=== PATIENT | male | born 1985 | race Two or more races ===

== ENCOUNTER 2020-09-05 16:38 | Inpatient (IN) | payer OTHER ==
[~2020-09-05] VITALS: Ht 182.9 cm; Wt 117.5 kg
[2020-09-05] MEDS ORDERED: PANTOPRAZOLE 40 MG/10 ML VIAL INJ IV STA (17:29)
[2020-09-05] MEDS ORDERED: SODIUM CHLORIDE 0.9% 1,000 ML IVB ONE (17:30)
[2020-09-05] MEDS ORDERED: MORPHINE SULFATE 4 MG/ML SYR/VIAL IV ONE (18:15)
[2020-09-05] MEDS ORDERED: ONDANSETRON HCL 4 MG/2 ML VIAL IV ONE (18:15)
[2020-09-05 18:21] LABS: Basophils # (auto) 0 10 ^3/uL (0-0.2); Basophils % (auto) 0.5 % (0.0-2.0); Eosinophils # (auto) 0.1 10 ^3/uL (0-0.8); Eosinophils % (auto) 0.6 % (0.0-7.0); Hematocrit 50.4 % (41.0-53.0); Hemoglobin 16.8 g/dL (13.5-17.5); Lymphocytes # (auto) 0.9 10 ^3/uL (0.4-5.4); Lymphocytes % (auto) 9.7 % (10.0-50.0); Mean Corpuscular Hgb Conc. 33.3 g/dL (32.0-36.0); Monocytes # (auto) 0.8 10 ^3/uL (0-1.3); Monocytes % (auto) 9.5 % (0.0-12.0); Neutrophils % (auto) 79.7 % (37.0-80.0); Nucleated Red Blood Cells % 0.2 %; Platelet Count (auto) 261 10^3/uL (140-450); Red Blood Cells 5.99 10^6/uL (4.5-5.90); Red Cell Distribution Width 13.4 % (11.8-14.3); White Blood Cell 8.8 10^3/uL (4.4-10.8)
[2020-09-05 18:43] LABS: Albumin 4.4 g/dL (3.4-5.0); Calcium 8.7 mg/dL (8.5-10.1); Potassium 3.7 mmol/L (3.5-5.1)
[2020-09-05] MEDS ORDERED: LORazepam 2MG/ML-1ML VIAL IV ONE (18:45)
[2020-09-05] MEDS ORDERED: ONDANSETRON HCL 4 MG/2 ML VIAL IV PRN (18:45)
[2020-09-05] MEDS ORDERED: MORPHINE SULF INJ 2 MG/ML SYRINGE 1ML IV PRN (18:45)
[2020-09-05] MEDS: D5W/SOD CHLO 0.9% 1,000 ML IV SCH (18:45)
[2020-09-05 18:46] LABS: Bilirubin, Total 0.7 mg/dL (0.2-1.0)
[2020-09-05 22:00] VITALS: BP 127/76
[2020-09-05] MEDS: METOCLOPRAMIDE HCL 5MG/ml INJ 2ml VIAL IV SCH (22:00)
--- NOTE | 2020-09-05 22:16 | NUR ---
Patient arrived to room 296B Patient A&Ox4, respirations even and non-labored with no s/s of distress at this time. VS: T 98.7, IN 91, RR 21, 95%, 127/76, 4/10 pain. Discussed POC with patient who verbalized understanding. Patient has a 20g to the LAC. Patient connected to LIS per Physician orders, draining 400 mL of greenish brown fluid. Patient stated that he felt a lot better after the LIS began. D5/.9NS running at 125 mL/hr. Safety precautions in place, bed in lowest locked position with 2 side rails up, call light within reach. Will continue to monitor Q1hr and PRN.
[2020-09-05 23:39] VITALS: BP 127/76
[2020-09-06] MEDS: D5W/SOD CHLO 0.9% 1,000 ML IV SCH ×3 (02:45→18:20)
[2020-09-06 05:00] VITALS: BP 132/70
[2020-09-06] MEDS: METOCLOPRAMIDE HCL 5MG/ml INJ 2ml VIAL IV SCH ×2 (05:13→13:53)
--- NOTE | 2020-09-06 05:48 | NUR ---
Emptied suction canister Removed 500 ml of dark green fluid.
--- NOTE | 2020-09-06 07:45 | NUR ---
Closing shift note Patient resting without s/s of distress at this time. Endorsed care to day shift RN.
[2020-09-06 08:04] LABS: Basophils # (auto) 0 10 ^3/uL (0-0.2); Basophils % (auto) 0.5 % (0.0-2.0); Eosinophils # (auto) 0 10 ^3/uL (0-0.8); Eosinophils % (auto) 0.4 % (0.0-7.0); Hemoglobin 15.6 g/dL (13.5-17.5); Lymphocytes # (auto) 1.4 10 ^3/uL (0.4-5.4); Lymphocytes % (auto) 18.3 % (10.0-50.0); Mean Corpuscular Hemoglobin 28.2 pg (28.0-32.0); Mean Corpuscular Hgb Conc. 33.1 g/dL (32.0-36.0); Mean Corpuscular Volume 85.1 fL (80.0-100.0); Monocytes # (auto) 1.1 10 ^3/uL (0-1.3); Monocytes % (auto) 14.3 % (0.0-12.0); Neutrophils # (auto) 5.1 10 ^3/uL (1.6-8.6); Neutrophils % (auto) 66.5 % (37.0-80.0); Platelet Count (auto) 246 10^3/uL (140-450); Red Blood Cells 5.52 10^6/uL (4.5-5.90); Red Cell Distribution Width 13.7 % (11.8-14.3); White Blood Cell 7.7 10^3/uL (4.4-10.8)
--- NOTE | 2020-09-06 08:15 | NUR ---
Opening Shift Note Assumed care of patient, awake and alert bed is locked and in lowest position bed rails up x2 , call light is within reach . No S/S of distress/SOB or pain. Instructed on POC and to call for assistance PRN, will continue to monitor for changes Q1hr and PRN.
[2020-09-06] MEDS ORDERED: GASTROGRAFIN 120 ML SOL ONE (08:17)
[2020-09-06 08:24] LABS: Albumin 3.8 g/dL (3.4-5.0); Calcium 8.2 mg/dL (8.5-10.1); Potassium 3.7 mmol/L (3.5-5.1)
[2020-09-06 08:28] LABS: BUN/Creatinine Ratio 20.5; Bilirubin, Total 0.7 mg/dL (0.2-1.0); INR 1.03 (0.9-1.15); Partial Thromboplastin Time 27.6 sec (23.0-31.2); Total Protein 7.3 g/dL (6.4-8.2)
[2020-09-06 09:00] VITALS: BP 129/74
[2020-09-06] MEDS: PANTOPRAZOLE 40 MG/10 ML VIAL INJ IV SCH (10:52)
[2020-09-06 13:00] VITALS: BP_SYST 128; BP_SYST 150; BP_DIAS 73; BP_DIAS 80
[2020-09-06] MEDS ORDERED: POTASSIUM CHLORIDE 20 MEQ, LIDOCAINE 1% (LOCAL ANESTH.) 2 ML in SODIUM CHL 0.9% 100 ML IV ONE (14:00)
[2020-09-06] MEDS ORDERED: POTASSIUM EFFERVESENT TAB 25 MEQ PO ONE (14:45)
[2020-09-06 17:00] VITALS: BP 136/77
--- NOTE | 2020-09-06 17:38 | NUR ---
NGT removal NGT removed per MD/[employer]INTENANCE order following explanation and instruction to patient. Patient verbalized understanding prior to removal. Patient tolerated well.
--- NOTE | 2020-09-06 19:20 | NUR ---
OPENING SHIFT NOTE Assumed care of patient who is alert and oriented currently on RA with no S/S of distress or SOB noted at this time. Patient is ambulatory without assistance. Patient denies any pain at this time. POC discussed with patient in detail, all questions answered, patient verbalized understanding. Bed is locked, in lowest position. side rails up x2. Patient is encouraged to call for assistance as needed. Call light within reach, will continue to monitor PRN/Q1hr.
[2020-09-06 22:00] VITALS: BP 135/78
[2020-09-07] MEDS: D5W/SOD CHLO 0.9% 1,000 ML IV SCH (02:43)
[2020-09-07 05:00] VITALS: BP 121/72
--- NOTE | 2020-09-07 07:19 | NUR ---
CARE ENDORSED TO DAY SHIFT RN
--- NOTE | 2020-09-07 07:55 | NUR ---
Opening Shift Note Assumed care of patient, awake and alert. No S/S of distress/SOB or pain. Instructed on POC and to call for assist PRN, will continue to monitor for changes Q1hr and PRN.
[2020-09-07 08:00] VITALS: BP 122/70
[2020-09-07 09:00] VITALS: BP 122/70
[2020-09-07] MEDS: PANTOPRAZOLE 40 MG/10 ML VIAL INJ IV SCH (09:04)
[2020-09-07] MEDS ORDERED: IBUPROFEN 400 MG TAB PO PRN (09:15)
[2020-09-07] MEDS ORDERED: FAMOTIDINE 20 MG TAB PO SCH (10:00)
--- NOTE | 2020-09-07 10:45 | NUR ---
Meal tray served to patient Instructed patient to notify staff if meal is not tolerated. Patient verbalized understanding. Instructed patient on MD order to ambulate. Patient verbalized understanding. Call light within reach.
--- NOTE | 2020-09-07 11:30 | NUR ---
RE: Diet Patient tolerated diet well. Patient denies N/V or abdominal pain.
[2020-09-07 12:39] VITALS: BP 139/82
[2020-09-07 13:00] VITALS: BP_SYST 139; BP_DIAS 72; BP_DIAS 82
--- NOTE | 2020-09-07 13:44 | NUR ---
DISCHARGE Pt education and follow up appointments given. Pt verbalized understanding. No s/s of distress/SOB or pain noted. IV DC'd with clean sterile technique, catheter fully intact. Pressure dressing applied to site. Patient tolerated well. Pt ambulated with steady gate to private vehicle.
== END 2020-09-07 13:39 | disposition home or self-care (01) | DRG 390 ==
LOC: ER 16:38 → OVERFLOW 16:39 → WEST WING 21:07
PROVIDERS: ADMIT Nurse Practitioner Acute Care; ATTEND Internal Medicine
DX: K56.600 Partial intestinal obstruction, unspecified as to cause (principal); E66.9 Obesity, unspecified; Z68.35 Body mass index [BMI] 35.0-35.9, adult; R16.1 Splenomegaly, not elsewhere classified; Z83.3 Family history of diabetes mellitus
CPT/HCPCS: 36415; 74176; 74250; 80053; 83690; 85025; 85610; 85730; 96361; 96374; 96375; C9113; G0378; J2001; J2405; J7042